=== PATIENT | male | born 1955 | race Two or more races ===

== ENCOUNTER 2019-02-25 09:38 | Outpatient (CLI) | payer OTHER ==
[2019-02-25] MEDS ORDERED: AVALIDE 300-121 EACH PO (14:55)
[2019-02-25] MEDS ORDERED: GABAPENTIN800 MG PO (14:55)
[2019-02-25] MEDS ORDERED: CRESTOR40 MG PO (14:55)
[2019-02-25] MEDS ORDERED: PANTOPRAZOLE SO20 MG PO (14:55)
[2019-02-25] MEDS ORDERED: NIFEDIPINE10 MG PO (14:56)
== END 2019-02-25 09:43 | disposition home or self-care (01) ==
LOC: EKG 09:38
DX: I10 Essential (primary) hypertension (principal)

== ENCOUNTER 2019-03-05 06:30 | Day surgery (SDC) | payer OTHER ==
[~2019-03-05 06:30] MED LIST: AVALIDE 300-121 EACH PO; CRESTOR40 MG PO; GABAPENTIN800 MG PO; NIFEDIPINE10 MG PO; PANTOPRAZOLE SO20 MG PO
[2019-03-05] MEDS ORDERED: NABUMETONE750 MG PO (09:41)
[2019-03-05] MEDS ORDERED: PERCOCET 5-3251 EACH PO (09:41)
== END 2019-03-05 13:00 | disposition home or self-care (01) ==
LOC: CIR.AMB 06:30
DX: M23.321 Other meniscus derangements, posterior horn of medial meniscus, right knee (principal); M23.351 Other meniscus derangements, posterior horn of lateral meniscus, right knee; M94.261 Chondromalacia, right knee; M65.861 Other synovitis and tenosynovitis, right lower leg